=== PATIENT | male | born 1965 | race Caucasian/White ===

== ENCOUNTER 2017-01-27 15:30 | Emergency (ER) | payer OTHER ==
[~2017-01-27] VITALS: Ht 180.3 cm; Wt 98.4 kg
[~2017-01-27 15:30] MED LIST: CIPR-255 PO; MULT-506 PO
[2017-01-27 15:38] VITALS: TEMP 36.7; Ht 180.3 cm; Wt 98.4 kg
[2017-01-27] MEDS ORDERED: SODIUM CHLORIDE 0.9% 1000ML 1,000 ML IV STA ×2 (16:37→18:39)
[2017-01-27] MEDS ORDERED: FAMOTIDINE 20MG/102 ML D5W IV STA (16:43)
[2017-01-27] MEDS ORDERED: ONDANSETRON INJ 2 MG/ML 2 ML VIAL IV STA (16:43)
--- NOTE | 2017-01-27 16:43 | EMERGENCY ROOM VISIT NOTE ---
History Report prepared by Ad: Mary Puentes Under the Supervision of: Dr. Solis Proctor M.D. First contact with patient: 16:35 Chief Complaint: ABDOMINAL PAIN Stated Complaint: DIVERTICULITIS, BELLY PAIN/DISCOMFORT Nursing Triage Summary: Left sided flank pain, nausea. Hx of diverticulitis and kidney stones. On ABX for diverticulitis that started last week. History of Present Illness The patient is a 51 year old male who presents to the Emergency Room with complaints of increasing left lower abdominal pain. The patient was given antibiotics for diverticulitis last week at [facility] but was given Augmentin instead of Cipro flagyl, which he has gotten in the past for his recurrent diverticulitis. He notes nausea and a bad taste in his mouth. He denies any diarrhea, fevers, urinary symptoms or chills. The patient has a history of diverticulitis and kidney stones. The patient saw his PCP yesterday whom told him to continue his antibiotics unless his pain worsens. Source of History: patient Onset: week ago Position: abdomen (LLQ) Timing: worsening Associated Symptoms: + nausea, No fevers, No chills, No diarrhea, No urinary symptoms Review of Systems See HPI for pertinent positives and negatives. A total of ten systems were reviewed and were otherwise negative. Past Medical & Surgical Medical Problems: (1) Diverticulitis (2) Diverticulosis Family History Cancer Social History Smoking Status: Never Smoker Alcohol Use: none Marital Status: Housing Status: lives with significant other Occupation Status: employed Current/Historical Medications Scheduled Amoxicillin & Pot Clavulanate (Augmentin 875-125 mg), 1 TAB PO BID Ciprofloxacin Hcl (Ciprofloxacin Hcl), 1 TABS PO BID Levothyroxine Sodium (Synthroid), 75 MCG PO DAILY Metronidazole (Flagyl), 500 MG PO QID Probiotic Product (Probiotic), 1 CAP PO DAILY Allergies Coded Allergies: Sulfa Antibiotics (Verified Allergy, Intermediate, Rash, 01/27/17) Physical Exam Vital Signs Date Time Temp Pulse Resp B/P (MAP) Pulse Ox O2 Delivery O2 Flow Rate FiO2 01/27/17 20:41 56 18 122/81 99 01/27/17 16:58 Room Air 01/27/17 16:38 83 01/27/17 15:38 36.7 81 16 159/88 99 Room Air Physical Exam GENERAL: Awake, alert, well-appearing, in no distress HENT: Normocephalic, atraumatic. Oropharynx unremarkable. Dry MM. EYES: Normal conjunctiva. Sclera non-icteric. NECK: Supple. No nuchal rigidity. FROM. No JVD. RESPIRATORY: Clear to auscultation. CARDIAC: Regular rate, normal rhythm. Extremities warm and well perfused. Pulses equal. ABDOMEN: Soft, non-distended. No rebound or guarding. No masses. Mild LLQ tenderness. No peritoneal signs. RECTAL: Deferred. MUSCULOSKELETAL: Chest examination reveals no tenderness. The back is symmetrical on inspection without obvious abnormality. There is no CVA tenderness to palpation. No joint edema. LOWER EXTREMITIES: Calves are equal size bilaterally and non-tender. No edema. No discoloration. NEURO: Normal sensorium. No sensory or motor deficits noted. SKIN: No rash or jaundice noted. Medical Decision & Procedures ER Provider Diagnostic Interpretation: Radiology results as stated below per my review and radiologist interpretation: CHEST ONE VIEW PORTABLE FINDINGS: The bones soft tissues and hemidiaphragms are normal. The cardiomediastinal silhouette is normal. The lungs are clear. The pulmonary vasculature is normal. IMPRESSION: Negative chest. The above report was generated using voice recognition software. It may contain grammatical, syntax or spelling errors. Electronically signed by: Sabino Flowers M.D. ABD/PELVIS IV CONTRAST ONLY FINDINGS: Mild bibasilar atelectasis. Liver spleen and pancreas are unremarkable. Right renal cyst unchanged in the prior exam. No evidence renal hydronephrosis. Nonobstructive bowel pattern. Findings of acute mid to distal descending and sigmoid diverticulitis. No evidence for abscess collection or obstructive change. No free fluid within the pelvic cul-de-sac. Small reactive nodes are present. No significant abdominal pelvic or inguinal adenopathy. Normal appendix. IMPRESSION: 1. Acute diverticulitis of the mid to distal descending colon as well as proximal to mid sigmoid colon. 2. Mild pericolonic infiltrative change. 3. No evidence for abscess collection or obstruction. The above report was generated using voice recognition software. It may contain grammatical, syntax or spelling errors. Electronically signed by: Sabino Flowers M.D. Laboratory Results 01/27/17 16:55 Red Blood Count 4.92, Mean Corpuscular Volume 86.2, Mean Corpuscular Hemoglobin 29.9, Mean Corpuscular Hemoglobin Concent 34.7, Mean Platelet Volume 9.7, Neutrophils (%) (Auto) 71.3, Lymphocytes (%) (Auto) 12.6, Monocytes (%) (Auto) 13.0, Eosinophils (%) (Auto) 2.5, Basophils (%) (Auto) 0.3, Neutrophils # (Auto ) 5.35, Lymphocytes # (Auto) 0.94, Monocytes # (Auto) 0.97, Eosinophils # (Auto ) 0.19, Basophils # (Auto) 0.02 01/27/17 16:55 Test 01/27/17 16:20 01/27/17 16:55 Urine Color YELLOW Urine Appearance CLEAR (CLEAR) Urine pH 6.0 (4.5-7.5) Urine Specific Salol 1.022 (1.000-1.030) Urine Protein NEG (NEG) Urine Glucose (UA) NEG (NEG) Urine Ketones NEG (NEG) Urine Occult Blood NEG (NEG) Urine Nitrite NEG (NEG) Urine Bilirubin NEG (NEG) Urine Urobilinogen NEG (NEG) Urine Leukocyte Esterase NEG (NEG) White Blood Count 7.49 K/uL (4.8-10.8) Red Blood Count 4.92 M/uL (4.7-6.1) Hemoglobin 14.7 g/dL (14.0-18.0) Hematocrit 42.4 % (42-52) Mean Corpuscular Volume 86.2 fL (80-100) Mean Corpuscular Hemoglobin 29.9 pg (25-34) Mean Corpuscular Hemoglobin Concent 34.7 g/dl (32-36) Platelet Count 223 K/uL (130-400) Mean Platelet Volume 9.7 fL (7.4-10.4) Neutrophils (%) (Auto) 71.3 % Lymphocytes (%) (Auto) 12.6 % Monocytes (%) (Auto) 13.0 % Eosinophils (%) (Auto) 2.5 % Basophils (%) (Auto) 0.3 % Neutrophils # (Auto) 5.35 K/uL (1.4-6.5) Lymphocytes # (Auto) 0.94 K/uL (1.2-3.4) Monocytes # (Auto) 0.97 K/uL (0.11-0.59) Eosinophils # (Auto) 0.19 K/uL (0-0.5) Basophils # (Auto) 0.02 K/uL (0-0.2) RDW Standard Deviation 40.1 fL (36.4-46.3) RDW Coefficient of Variation 12.7 % (11.5-14.5) Immature Granulocyte % (Auto) 0.3 % Immature Granulocyte # (Auto) 0.02 K/uL (0.00-0.02) Anion Gap 7.0 mmol/L (3-11) Est Creatinine Clear Calc Drug Dose 103.3 ml/min Estimated GFR () 99.8 Estimated GFR (Non- 86.2 BUN/Creatinine Ratio 10.3 (10-20) Lactic Acid Level 0.7 mmol/L (0.4-2.0) Calcium Level 9.1 mg/dl (8.5-10.1) Total Bilirubin 0.4 mg/dl (0.2-1) Direct Bilirubin < 0.1 mg/dl (0-0.2) Aspartate Amino Transf (AST/SGOT) 19 U/L (15-37) Alanine Aminotransferase (ALT/SGPT) 24 U/L (12-78) Alkaline Phosphatase 109 U/L (45-117) Total Protein 7.9 gm/dl (6.4-8.2) Albumin 3.6 gm/dl (3.4-5.0) Lipase 280 U/L (73-393) Laboratory results reviewed by me Medications Administered Medications (Trade) Dose Ordered Sig/Denisa Route Start Time Stop Time Status Last Admin Dose Admin Sodium Chloride 1,000 ml @ 999 mls/hr Q1H1M STAT IV 01/27/17 16:37 01/27/17 17:37 DC 01/27/17 17:18 999 MLS/HR Famotidine (Pepcid 20mg/100 ml) 20 mg ONE STAT IV 01/27/17 16:43 01/27/17 16:45 DC 01/27/17 17:18 20 MG Ondansetron HCl (Zofran Inj) 4 mg NOW STAT IV 01/27/17 16:43 01/27/17 16:45 DC 01/27/17 17:18 4 MG Ciprofloxacin/ Dextrose (Cipro / D5W) 400 mg NOW STAT IV 01/27/17 18:39 01/27/17 18:41 DC 01/27/17 18:59 400 MG Metronidazole (Flagyl / Nss) 500 mg NOW STAT IV 01/27/17 18:39 01/27/17 18:41 DC 01/27/17 18:58 500 MG Sodium Chloride 1,000 ml @ 999 mls/hr Q1H1M STAT IV 01/27/17 18:39 01/27/17 19:39 DC 01/27/17 18:59 999 MLS/HR Oxycodone/ Acetaminophen (Percocet 5-325mg Tab) 1 tab NOW ONCE PO 01/27/17 20:15 01/27/17 20:16 DC 01/27/17 20:06 1 TAB ED Course 1635: The patient was evaluated in room B12B. A complete history and physical exam was performed. 1637: Sodium Chloride 1000 ml @ 999 mls/hr IV. 1643: Zofran Inj 4 mg IV, Famotidine 20 mg IV. 1645: Ioversol 111 ml IV. 1832: I updated the patient on his test results. 1839: Sodium Chloride 1000 ml @ 999 mls/hr IV, Metronidazole 500 mg IV, Cipro/ D5W 400 mg IV. Medical Decision I reviewed the patient's past medical history, medications, and the nursing notes as described above. Differential diagnosis: diverticulitis, gastroenteritis, bowel obstruction, renal stone, and pyelonephritis. The patient is a 51-year-old gentleman with a past medical history of recurrent diverticulitis who presents to the emergency department with left lower quadrant pain currently being treated outpatient with Augmentin for diverticulitis per history of present illness. Arrival of the patient is in no acute distress, afebrile stable vital signs. Exam the patient has mild to moderate left lower quadrant tenderness to palpation without peritoneal signs. Labs unremarkable with WBC, LFTs, lipase, lactate within normal limits. CT scan showing diverticulitis in the descending colon as well as sigmoid colon. The patient is afebrile and otherwise hemodynamically stable we will give patient an initial IV dose of antibiotics and discharge on Cipro and Flagyl. Findings and plan for follow-up d/w patient. Patient agreeable and d/c'd per discharge instructions. Medication Reconcilliation Current Medication List: was personally reviewed by me Blood Pressure Screening Patient's blood pressure: Elevated blood pressure Blood pressure disposition: Elevated BP felt to be situational Impression Primary Impression: Diverticulitis Scribe Attestation The scribe's documentation has been prepared under my direction and personally reviewed by me in its entirety. I confirm that the note above accurately reflects all work, treatment, procedures, and medical decision making performed by me. Departure Information Dispostion Home / Self-Care Prescriptions Metronidazole (Flagyl) 500 Mg Tab 500 MG PO QID for 10 Days, #40 TAB Prov: Solis Proctor M.D. 01/27/17 Ciprofloxacin Hcl (CIPROFLOXACIN HCL) 750 Mg Tab 1 TABS PO BID for 10 Days, #20 TABS Prov: Solis Proctor M.D. 01/27/17 Referrals Jerry Allen M.D. (PCP) Patient Instructions Diverticulitis Dc, [facility] Additional Instructions Please follow up with your primary care physician in the next 1-3 days for reevaluation. Your CT scan showed diverticulitis. Otherwise, your exam, lab results, and CT scan did not show signs of an emergent condition at this time. Take ciprofloxacin and Flagyl as directed. You may discontinue your current antibiotic. Return to the emergency department for worsening symptoms as described in the accompanying instructions.
[2017-01-27] MEDS ORDERED: OPTIRAY 320 IV PRN (16:45)
[2017-01-27 17:07] LABS: BASO % 0.3 %; BASO ABS # 0.02 K/uL (0-0.2); COMPLETE YES; EOS % 2.5 %; HEMATOCRIT 42.4 % (42-52); IG% 0.3 %; LYMPH % 12.6 %; LYMPH ABS # 0.94 K/uL (1.2-3.4); MEAN CELL VOLUME 86.2 fL (80-100); MEAN CORPUSCULAR HEMOGLOBIN 29.9 pg (25-34); MEAN CORPUSCULAR HGB CONC 34.7 g/dl (32-36); MEAN PLATELET VOLUME 9.7 fL (7.4-10.4); NEUT % 71.3 %; PLATELET COUNT 223 K/uL (130-400); RED BLOOD COUNT 4.92 M/uL (4.7-6.1); WHITE BLOOD COUNT 7.49 K/uL (4.8-10.8)
--- NOTE | 2017-01-27 17:15 | DIAGNOSTIC IMAGING REPORT ---
CHEST ONE VIEW PORTABLE CLINICAL HISTORY: CHEST PAIN dyspnea COMPARISON STUDY: No previous studies for comparison. FINDINGS: The bones soft tissues and hemidiaphragms are normal. The cardiomediastinal silhouette is normal. The lungs are clear. The pulmonary vasculature is normal. IMPRESSION: Negative chest. The above report was generated using voice recognition software. It may contain grammatical, syntax or spelling errors. Electronically signed by: Sabino Flowers M.D. 01/27/2017 5:13 PM Dictated Date/Time: 01/27/2017 5:13 PM
[2017-01-27 17:17] LABS: URINE BILIRUBIN NEG (NEG); URINE COLOR YELLOW; URINE NITRITE NEG (NEG); URINE SPECIFIC GRAVITY 1.022 (1.000-1.030); UROBILINOGEN NEG (NEG); ZZUR CULT IF INDIC CLEAN CATCH NO
[2017-01-27 17:19] LABS: MANUAL MICROSCOPIC REQUIRED? NO; REVIEW REQ? NO; URINE APPEARANCE CLEAR (CLEAR)
[2017-01-27 17:39] LABS: BLOOD UREA NITROGEN 10 mg/dl (7-18); BUN/CREATININE RATIO 10.3 (10-20); CALCIUM 9.1 mg/dl (8.5-10.1); CARBON DIOXIDE 28 mmol/L (21-32); CHLORIDE 102 mmol/L (98-107); GLUCOSE 81 mg/dl (70-99); SODIUM 137 mmol/L (136-145)
[2017-01-27 17:42] LABS: ALKALINE PHOSPHATASE 109 U/L (45-117); ALT/SGPT 24 U/L (12-78); AST/SGOT 19 U/L (15-37)
[2017-01-27] MEDS ORDERED: MISCCAP80 PO (17:50)
[2017-01-27] MEDS ORDERED: AMOX875T PO (17:50)
[2017-01-27] MEDS ORDERED: LEVO75TA PO (18:09)
--- NOTE | 2017-01-27 18:23 | DIAGNOSTIC IMAGING REPORT ---
ABD/PELVIS IV CONTRAST ONLY CT DOSE: 859.44 mGycm HISTORY: Pain LLQ pain - h/o diverticulitis TECHNIQUE: Multiaxial CT images of the abdomen and pelvis were performed following the use of intravenous contrast. A dose lowering technique was utilized adhering to the principles of ALARA. COMPARISON STUDY: 09/13/2015 FINDINGS: Mild bibasilar atelectasis. Liver spleen and pancreas are unremarkable. Right renal cyst unchanged in the prior exam. No evidence renal hydronephrosis. Nonobstructive bowel pattern. Findings of acute mid to distal descending and sigmoid diverticulitis. No evidence for abscess collection or obstructive change. No free fluid within the pelvic cul-de-sac. Small reactive nodes are present. No significant abdominal pelvic or inguinal adenopathy. Normal appendix. IMPRESSION: 1. Acute diverticulitis of the mid to distal descending colon as well as proximal to mid sigmoid colon. 2. Mild pericolonic infiltrative change. 3. No evidence for abscess collection or obstruction. The above report was generated using voice recognition software. It may contain grammatical, syntax or spelling errors. Electronically signed by: Sabino Flowers M.D. 01/27/2017 6:22 PM Dictated Date/Time: 01/27/2017 6:19 PM
[2017-01-27] MEDS ORDERED: CIPROFLOXACIN 400MG / 200ML D5W IV STA (18:39)
[2017-01-27] MEDS ORDERED: METRONIDAZOLE 500MG / 100ML NSS IV STA (18:39)
[2017-01-27] MEDS ORDERED: METR-163 PO (19:20)
[2017-01-27] MEDS ORDERED: CIPR750T3 PO (19:20)
[2017-01-27] MEDS ORDERED: OXYCODONE/ACETAMINOPHEN 5-325 TAB PO ONE (20:15)
[2017-01-27 20:41] VITALS: BP 122/81; PULSE 56; O2SAT 99
== END 2017-01-27 20:42 | disposition home or self-care (01) ==
LOC: C.EDB 15:32
DX: K57.92 Diverticulitis of intestine, part unspecified, without perforation or abscess without bleeding (principal)